=== PATIENT | female | born 1985 | race Hispanic/Latino ===

== ENCOUNTER 2019-02-22 15:30 | Emergency (ER) | payer SELFPAY ==
[~2019-02-22] VITALS: Ht 154.9 cm; Wt 86.2 kg
== END 2019-02-22 16:15 | disposition home or self-care (01) ==
LOC: ER 15:30
DX: H57.12 Ocular pain, left eye (principal); J01.00 Acute maxillary sinusitis, unspecified; J01.20 Acute ethmoidal sinusitis, unspecified
CPT/HCPCS: 99283